=== PATIENT | female | born 1985 | race Two or more races ===

== ENCOUNTER 2022-04-02 17:47 | Emergency (ER) | payer OTHER ==
[~2022-04-02] VITALS: Ht 172.7 cm; Wt 69.4 kg
[2022-04-02] MEDS ORDERED: ZOLOFT50 MG PO (17:56)
[2022-04-02] MEDS ORDERED: BUSPIRONE HCL7.5 MG (17:57)
== END 2022-04-02 21:23 | disposition home or self-care (01) ==
LOC: ER 17:47
DX: L03.116 Cellulitis of left lower limb (principal)